=== PATIENT | male | born 1960 | race African-American/Black ===

== ENCOUNTER 2016-09-16 16:26 | Emergency (ER) | payer MEDICARE, MEDICAID ==
[~2016-09-16 16:26] MED LIST: ASPIR 8181 MG PO; ATARAX-DPS25 MG PO; BYSTOLIC10 MG PO; HUMALOG 50100 UNITS/ SQ; HYDROCODONE 5MG/5 MG PO; LASIX DPS40 MG PO; PROTONIX40 MG PO; PROVENTIL2.5 MG/0.5 IH; REGLAN DPS5 MG PO; RENAGEL800 MG PO; ROCALTROL DP0.25 MCG PO; TYLENOL DPS325 MG PO; ULTRAM DPS50 MG PO; ZESTRIL DPS5 MG PO; ZOLOFT DPS100 MG PO
--- NOTE | 2016-10-07 21:26 | ER ---
ADMIT: 09/16/2016 RM/LOC: ER [facility] MR#: [id number] [address] [address] NORBERTO JESUS [address] [place] [id number] Emergency Room Report SEX: M AGE: 55 : 1960 DATE: 09/16/2016 HISTORY OF PRESENT ILLNESS: A 55-year-old comes to the Emergency Department with a draining wound on his right leg. It has been present for the past several days. His or significant other has noted the drainage today. See T-sheet for history and physical. It appears there is draining open ulcer on his leg with area of erythema around. He had just started Augmentin today for ear infection. I added doxycycline to the coverage, told him he must follow up with his doctor on Sunday. DIAGNOSIS: Cellulitis. Navneet Soriano MD/ fatimah JOB #: [id number] CC: Pratik Sommer MD, Attending Physician
[2017-01-26] MEDS ORDERED: LIPITOR DPS10 MG PO (13:04)
[2017-01-26] MEDS ORDERED: MELATONIN3 MG PO (13:05)
[2017-01-26] MEDS ORDERED: PRO-AMATINE2.5 MG PO (13:05)
[2017-01-26] MEDS ORDERED: THORAZINE-DPS25 MG PO (13:05)
[2017-01-26] MEDS ORDERED: PROTONIX40 MG PO (13:05)
[2017-01-26] MEDS ORDERED: ZOLOFT100 MG PO (13:06)
[2017-01-26] MEDS ORDERED: PROVENTIL2.5 MG/3 M IH (13:06)
[2017-01-26] MEDS ORDERED: OXY IR DPS5 MG PO (13:08)
[2017-01-26] MEDS ORDERED: LIDOPATCH1 EACH TP (13:08)
[2017-01-26] MEDS ORDERED: DEBROX OTIC15 ML OU (13:10)
[2017-01-26] MEDS ORDERED: AUGMENTIN 500-1 EACH PO (13:10)
[2017-01-26] MEDS ORDERED: GLUCAGON EMERGEN1 MG IM (13:11)
[2017-01-26] MEDS ORDERED: NOVOLOG100 UNIT/2 SQ (13:12)
[2017-01-26] MEDS ORDERED: GLUTOSE 1537.5 GM PO (13:12)
[2017-02-22] MEDS ORDERED: DUONEB DPS3 ML IH (20:04)
== END 2016-09-16 18:48 | disposition home or self-care (01) ==
LOC: ER 16:26
DX: L03.115 Cellulitis of right lower limb (principal); I10 Essential (primary) hypertension; E11.9 Type 2 diabetes mellitus without complications; J44.9 Chronic obstructive pulmonary disease, unspecified; Z88.8 Allergy status to other drugs, medicaments and biological substances

== ENCOUNTER → 2016-10-12 | Outpatient (CLI) | payer MEDICARE, MEDICAID ==
[~2016-10-12] MED LIST changes: +AUGMENTIN 500-1 EACH PO; +DEBROX OTIC15 ML OU; +DUONEB DPS3 ML IH; +GLUCAGON EMERGEN1 MG IM; +GLUTOSE 1537.5 GM PO; +LIDOPATCH1 EACH TP; +LIPITOR DPS10 MG PO; +MELATONIN3 MG PO; +NOVOLOG100 UNIT/2 SQ; +OXY IR DPS5 MG PO; +PRO-AMATINE2.5 MG PO; +PROVENTIL2.5 MG/3 M IH; +THORAZINE-DPS25 MG PO; +ZOLOFT100 MG PO
--- NOTE | ~2016-10-12 | CST ---
Cardiac Perfusion Imaging Demographics Patient Name ANN MARIE Ortega Gender Male Patient Number [id number] Race Black Visit Number [id number] Ethnicity Corporate ID Room Number Accession Number [id number] Height 73 inches Date of 1960 Weight 171.3 pounds Age 55 year(s) BSA 2.01 m Referring Physician Kt Richter MD BMI 22.6 kg/m Interpreting [facility] Date of study 10/12/2016 Physician King Derrick Haynes MD Supervising MD/MLP King Derrick Haynes MD NM Technologist Reynaldo Crook, [facility] Ordering Physician Fawad BARDALES Stress Yousuf glass installer technician Stress ECG Reading [facility] Nurse Amanuel Nguyen Physician King Derrick Andersen The procedure was explained in detail to the patient. Risks, complications and alternative treatments were reviewed. Written consent was obtained. Medications Reviewed with Patient prior to Procedure. Procedure Procedure Type: Nuclear Stress Test:Pharmacological, Cardiac Study SF Procedure Start time: 10/12/2016 08:00 Indications: Chest discomfort, Dyspnea, CHF and Hypertension. Risk Factors The patient risk factors include:former tobacco use, hypertension, diabetes mellitus, chronic lung disease, dyslipidemia, renal failure currently treated with dialysis and prior heart failure . Conclusions Summary Perfusion Images: The overall quality of the study is fair, due to gastrointestinal tracer uptake. Left ventricular cavity is noted to be enlarged on the stress and enlarged on the rest images. There is no evidence of abnormal lung activity. The right ventricle is not visualized an cannot be assessed. Stress SPECT images reveal a large sized area of severe decreased isotope uptake involving the entire inferior wall inferolateral wall of the left ventricle. . Rest SPECT images reveal a large sized area of severe decreased isotope uptake of the entire inferior wall and inferolateral wall . Gated SPECT imaging reveals abnormal thickening and global hypokinesis of the left ventricle. Overall left ventricular ejection fraction was calculated to be abnormal at 10%. Impression ECG portion of the stress test is clinically negative for ischemia by diagnostic criteria. Myocardial perfusion imaging is severely abnormal. The images reveal a fixed defect in the entire inferior wall inferolateral consistent with infarct . Overall left ventricular systolic function was abnormal. This is a intermediate to high risk stress test. There are no previous studies for comparison . Stress Protocols Resting ECG Normal sinus rhythm. Right bundle branch block. Resting HR:106 bpm Resting BP:90/64 mmHg Stress Protocol:Pharmacologic Predicted HR: 167 bpm Test duration: 06:00 min Reason for termination:Infusion complete ECG Findings Normal sinus rhythm. Right bundle branch block. Symptoms No symptoms with Lexiscan infusion. Complications Procedure complication: None. Stress Interpretation Appropriate hemodynamic response to Lexiscan. No significant ST-T wave changes with Lexiscan. ECG portion is negative for ischemia by diagnostic criteria. Imaging Results Summed scores - Summed stress score: 20 - Summed rest score: 11 - Summed difference score: 9 Stress ejection Ejection fraction:10 % EDV :549 ml ESV :494 ml Stroke volume :55 ml LV mass :352 gr Imaging Protocols Rest Stress Isotope:Tc99m Myoview IV Isotope: Tc99m Myoview IV Isotope dose:10.4 mCi Isotope dose:31.8 mCi Date:10/12/2016 06:45 Date:10/12/2016 08:00 Technique: SPECT Technique: Gated Supine SPECT Supine Scan Time:30 minutes post injection Scan Time:15-30 minutes post injection Procedure Medications - Regadenoson (Lexiscan) 0.4 mg IV over 10-15 sec. I.V. 0.4 mg. Medications administered per verbal order and read back to physician prior to administration. Medical History Admission Data Admission date: 10/12/2016 Admission Time: 06:39 Hospital Status: Outpatient. Signatures
== END | disposition home or self-care (01) ==
LOC: CARD 10-02 09:30
DX: R07.9 Chest pain, unspecified (principal)

== ENCOUNTER 2016-10-19 07:51 | Day surgery (SDC) | payer MEDICARE, MEDICAID ==
[~2016-10-19] VITALS: Ht 185.4 cm; Wt 73.0 kg
[~2016-10-19 07:51] MED LIST changes: -AUGMENTIN 500-1 EACH PO; -DEBROX OTIC15 ML OU; -DUONEB DPS3 ML IH; -GLUCAGON EMERGEN1 MG IM; -GLUTOSE 1537.5 GM PO; -LIDOPATCH1 EACH TP; -LIPITOR DPS10 MG PO; -MELATONIN3 MG PO; -NOVOLOG100 UNIT/2 SQ; -OXY IR DPS5 MG PO; -PRO-AMATINE2.5 MG PO; -PROVENTIL2.5 MG/3 M IH; -THORAZINE-DPS25 MG PO; -ZOLOFT100 MG PO
[2017-01-26] MEDS ORDERED: LIPITOR DPS10 MG PO (13:04)
[2017-01-26] MEDS ORDERED: MELATONIN3 MG PO (13:05)
[2017-01-26] MEDS ORDERED: THORAZINE-DPS25 MG PO (13:05)
[2017-01-26] MEDS ORDERED: PROTONIX40 MG PO (13:05)
[2017-01-26] MEDS ORDERED: PRO-AMATINE2.5 MG PO (13:05)
[2017-01-26] MEDS ORDERED: PROVENTIL2.5 MG/3 M IH (13:06)
[2017-01-26] MEDS ORDERED: ZOLOFT100 MG PO (13:06)
[2017-01-26] MEDS ORDERED: LIDOPATCH1 EACH TP (13:08)
[2017-01-26] MEDS ORDERED: OXY IR DPS5 MG PO (13:08)
[2017-01-26] MEDS ORDERED: AUGMENTIN 500-1 EACH PO (13:10)
[2017-01-26] MEDS ORDERED: DEBROX OTIC15 ML OU (13:10)
[2017-01-26] MEDS ORDERED: GLUCAGON EMERGEN1 MG IM (13:11)
[2017-01-26] MEDS ORDERED: NOVOLOG100 UNIT/2 SQ (13:12)
[2017-01-26] MEDS ORDERED: GLUTOSE 1537.5 GM PO (13:12)
[2017-02-22] MEDS ORDERED: DUONEB DPS3 ML IH (20:04)
== END 2016-10-19 12:55 | disposition home or self-care (01) ==
LOC: RAD.S 07:51 → EDSTATUS 09:00 → RAD.S 12:55
PROC: B51WYZZ Fluoroscopy of Dialysis Shunt/Fistula using Other Contrast (ICD-10-PCS; principal; 2016-10-19)
DX: T82.858A Stenosis of other vascular prosthetic devices, implants and grafts, initial encounter (principal); N18.6 End stage renal disease; Z88.8 Allergy status to other drugs, medicaments and biological substances; Z79.899 Other long term (current) drug therapy

== ENCOUNTER 2016-10-25 21:28 | Emergency (ER) | payer MEDICARE, MEDICAID ==
--- NOTE | 2016-10-26 19:12 | ER ---
ADMIT: 10/25/2016 RM/LOC: ER [facility] MR#: [id number] [address] [facility] [address] [place] [id number] NORBERTO JESUS [facility] [place] [address] Emergency Room Report SEX: M AGE: 56 : 1960 DATE: 10/25/2016 HISTORY OF PRESENT ILLNESS: The patient went to dialysis today and then when he came home he threw up once. brought him in for evaluation. He says also that he had a slight headache. He has diabetes type 2, with hypertension, depression. He has a pacer, cholecystectomy, and he says usually he gets a feeling of pretty weak. Today, he felt weak and then had a slight headache and threw up once. MEDICATIONS: He takes; 1. Hydrocodone. 2. Atorvastatin. 3. Calcium. 4. Chlorpromazine. 5. Zoloft. ALLERGIES: HE IS ALLERGIC TO METFORMIN AND LACTOSE. PHYSICAL EXAMINATION: VITAL SIGNS: Blood pressure 114/77, heart rate 97, respirations 16, temperature is 98.7, O2 saturations 100%. GENERAL: Slightly anxious. HEENT: Normal inspection. NECK: Supple. RESPIRATIONS: No distress. CVS: Regular in rate and rhythm. ABDOMEN: Nontender. SKIN: Pale. EXTREMITIES: Nontender. No edema noted. PSYCHIATRIC: Oriented x4. Mood and affect are appropriate. Very pleasant. at bedside. LABORATORY DATA: Hemoglobin 11.1, with a hematocrit of 33.5, and platelets of 219. His glucose is 114. He was given Zofran IV and his nausea stopped. CLINICAL IMPRESSION: Headache, nausea, vomiting, post-dialysis. PLAN: Instructions given for followup and Zofran for home use. Encouraged to use the Zofran in the next 2 doses instead of using chlorpromazine and follow up with his primary provider. DILCIA Gayle / Mike Zavaleta MD / fatimah JOB #: [id number] CC: Mike Zavaleta MD, Attending Physician
[2017-01-26] MEDS ORDERED: LIPITOR DPS10 MG PO (13:04)
[2017-01-26] MEDS ORDERED: PRO-AMATINE2.5 MG PO (13:05)
[2017-01-26] MEDS ORDERED: PROTONIX40 MG PO (13:05)
[2017-01-26] MEDS ORDERED: THORAZINE-DPS25 MG PO (13:05)
[2017-01-26] MEDS ORDERED: MELATONIN3 MG PO (13:05)
[2017-01-26] MEDS ORDERED: ZOLOFT100 MG PO (13:06)
[2017-01-26] MEDS ORDERED: PROVENTIL2.5 MG/3 M IH (13:06)
[2017-01-26] MEDS ORDERED: OXY IR DPS5 MG PO (13:08)
[2017-01-26] MEDS ORDERED: LIDOPATCH1 EACH TP (13:08)
[2017-01-26] MEDS ORDERED: DEBROX OTIC15 ML OU (13:10)
[2017-01-26] MEDS ORDERED: AUGMENTIN 500-1 EACH PO (13:10)
[2017-01-26] MEDS ORDERED: GLUCAGON EMERGEN1 MG IM (13:11)
[2017-01-26] MEDS ORDERED: GLUTOSE 1537.5 GM PO (13:12)
[2017-01-26] MEDS ORDERED: NOVOLOG100 UNIT/2 SQ (13:12)
[2017-02-22] MEDS ORDERED: DUONEB DPS3 ML IH (20:04)
== END 2016-10-25 23:45 | disposition home or self-care (01) ==
LOC: ER 21:28
DX: R11.2 Nausea with vomiting, unspecified (principal); R51 Headache; E11.9 Type 2 diabetes mellitus without complications; F32.9 Major depressive disorder, single episode, unspecified; Z88.8 Allergy status to other drugs, medicaments and biological substances; Z79.899 Other long term (current) drug therapy; Z90.49 Acquired absence of other specified parts of digestive tract

== ENCOUNTER 2016-11-07 17:47 | Emergency (ER) | payer MEDICARE, MEDICAID ==
--- NOTE | 2016-11-09 15:04 | NUR ---
Pt triggered as high ED user. Called and spoke with pt. Pt lives at home with . Has Medicare/Medicaid. Has transportation and able to fill medications. Has a PCP. Pt denies any needs or concerns at this time.
--- NOTE | 2016-12-14 16:41 | ER ---
ADMIT: 11/07/2016 RM/LOC: ER [facility] MR#: [id number] [address] [address] NORBERTO JESUS [facility] [place] [address] Emergency Room Report SEX: M AGE: 56 : 1960 DATE: 11/07/2016 ADDENDUM: This patient comes to the ER because he is having problems with constipation. He has not had a bowel movement for the last 5 days. He has not tried taking any medication at home. On physical exam, his abdomen is soft. He was given half a bottle of magnesium citrate. He had a large bowel movement and felt quite a bit of relief. He needs to continue with magnesium citrate, may take milk of magnesia [id number]. Follow up with his primary as needed. DILCIA Starkey / Navneet Soriano MD / fatimah JOB #: [id number] CC: Navneet Soriano MD, Attending Physician Pedro Meraz MD, Family Physician
[2017-01-26] MEDS ORDERED: LIPITOR DPS10 MG PO (13:04)
[2017-01-26] MEDS ORDERED: MELATONIN3 MG PO (13:05)
[2017-01-26] MEDS ORDERED: PRO-AMATINE2.5 MG PO (13:05)
[2017-01-26] MEDS ORDERED: THORAZINE-DPS25 MG PO (13:05)
[2017-01-26] MEDS ORDERED: PROTONIX40 MG PO (13:05)
[2017-01-26] MEDS ORDERED: PROVENTIL2.5 MG/3 M IH (13:06)
[2017-01-26] MEDS ORDERED: ZOLOFT100 MG PO (13:06)
[2017-01-26] MEDS ORDERED: OXY IR DPS5 MG PO (13:08)
[2017-01-26] MEDS ORDERED: LIDOPATCH1 EACH TP (13:08)
[2017-01-26] MEDS ORDERED: AUGMENTIN 500-1 EACH PO (13:10)
[2017-01-26] MEDS ORDERED: DEBROX OTIC15 ML OU (13:10)
[2017-01-26] MEDS ORDERED: GLUCAGON EMERGEN1 MG IM (13:11)
[2017-01-26] MEDS ORDERED: GLUTOSE 1537.5 GM PO (13:12)
[2017-01-26] MEDS ORDERED: NOVOLOG100 UNIT/2 SQ (13:12)
[2017-02-22] MEDS ORDERED: DUONEB DPS3 ML IH (20:04)
== END 2016-11-07 19:35 | disposition home or self-care (01) ==
LOC: ER 17:47
DX: K59.00 Constipation, unspecified (principal); I10 Essential (primary) hypertension; E11.9 Type 2 diabetes mellitus without complications; F32.9 Major depressive disorder, single episode, unspecified; Z95.0 Presence of cardiac pacemaker; Z79.899 Other long term (current) drug therapy; Z88.8 Allergy status to other drugs, medicaments and biological substances; Z99.2 Dependence on renal dialysis